=== PATIENT | male | born 1975 | race Two or more races ===

== ENCOUNTER 2018-12-01 06:59 | Day surgery (SDC) | payer OTHER ==
[2018-12-01] MEDS ORDERED: ULTRACET PO (10:43)
[2018-12-01] MEDS ORDERED: RECTICARE30 GM TOP (10:43)
== END 2018-12-01 11:58 | disposition home or self-care (01) ==
LOC: AMB-ENDOS 06:59
DX: K64.8 Other hemorrhoids (principal); R19.4 Change in bowel habit

== ENCOUNTER → 2019-07-26 | Day surgery (SDC) | payer OTHER ==
[~2019-07-26] MED LIST: PERCOCET 5-3251 EACH PO; RECTICARE30 GM TOP; ULTRACET PO
== END | disposition home or self-care (01) ==
LOC: ADM 07-22 07:45 → CIR.AMB 05:00
DX: K64.8 Other hemorrhoids (principal); K64.1 Second degree hemorrhoids